=== PATIENT | female | born 1980 | race Asian ===

== ENCOUNTER 2019-04-06 09:54 | Outpatient (CLI) | payer OTHER | END 2019-04-06 19:42 | disposition home or self-care (01) | LOC: RAD 09:54 | DX: R05 Cough (principal) ==

== ENCOUNTER 2019-04-20 09:17 | Observation (INO) | payer OTHER ==
[~2019-04-20] VITALS: Ht 157.5 cm; Wt 115.8 kg
[2019-04-20 10:43] VITALS: BP 128/80; TEMP 97.6; Ht 157.5 cm; Wt 115.8 kg
[2019-04-20 11:15] LABS: PLATELET COUNT 414 K/uL (152-353)
[2019-04-20 11:24] LABS: POTASSIUM 3.4 mmol/L (3.6-5.2)
[2019-04-20] MEDS ORDERED: CARAFATE1 GM/10 ML PO (11:47)
[2019-04-20] MEDS ORDERED: [UNRECOGNIZED DRUG - CODE] PO (11:48)
[2019-04-20] MEDS ORDERED: DULOXETINE HYDR60 MG PO (11:49)
[2019-04-20] MEDS ORDERED: ESCITALOPRAM20 MG PO (11:50)
[2019-04-20] MEDS ORDERED: GRALISE600 MG PO (11:51)
[2019-04-20] MEDS ORDERED: FURO40TA93 PO (11:51)
[2019-04-20] MEDS ORDERED: ZOHYDRO ER10 M1 PO (11:52)
[2019-04-20] MEDS ORDERED: METOPROLOL25 M1 PO (11:53)
[2019-04-20] MEDS ORDERED: SIMV40TA57 PO (11:54)
[2019-04-20] MEDS ORDERED: PANTOPRAZOLE 40MG TA PO (11:54)
[2019-04-20 12:00] VITALS: BP 128/80; TEMP 97.6
[2019-04-20 16:00] VITALS: BP 124/64; TEMP 97.9
[2019-04-20 20:00] VITALS: BP 107/62; TEMP 98.2
[2019-04-21] VITALS: BP 108/64; TEMP 98.1
[2019-04-21 04:00] VITALS: BP 92/51; TEMP 98.4
[2019-04-21 05:10] LABS: PLATELET COUNT 346 K/uL (152-353)
[2019-04-21 05:27] LABS: POTASSIUM 3.7 mmol/L (3.6-5.2)
[2019-04-21 08:00] VITALS: BP 142/99; TEMP 98.3
--- NOTE | 2019-04-21 08:00 | NUR ---
PT RECEIVED LYING IN BED. NO DISTRESS NOTED.
--- NOTE | 2019-04-21 09:10 | NUR ---
PT COMPLAINING OF CHEST TIGHTNESS/THROUGH TO BACK. STATES HAS NOT HAD NEB TREATMENT SINCE ADMISSION. BP 157/96, HR 98 - CM SHOWS NSR - NO CHANGE NOTED, RESP 22, SPO2 97% ON ROOM AIR. LUNG SOUNDS SLIGHTLY DIMINISHED BUT OTHERWISE CTA. CHART REVIEWED AND ORDER NOTED FOR HYDROCODONE. PT STATES THAT SHE HAS NOT HAD HER CHRONIC PAIN MEDICATION SINCE ADMISSION AND "I NEED IT".
--- NOTE | 2019-04-21 09:27 | NUR ---
PT GIVEN HYDROCODONE 10MG PO ORDERED FOR PAIN (LEVEL 6).
--- NOTE | 2019-04-21 10:00 | NUR ---
PT STATES PAIN IS GETTING BETTER. LEVEL 3 NOW. NO DISTRESS NOTED.
[2019-04-21 12:00] VITALS: BP 140/90; TEMP 97.5
--- NOTE | 2019-04-21 12:00 | NUR ---
PT RESTING IN BED. NO DISTRESS NOTED.
--- NOTE | 2019-04-21 13:50 | NUR ---
DR WILLIAMSON HERE TO SEE PT.
--- NOTE | 2019-04-21 15:00 | NUR ---
SPOKE WITH DOYLE AT [facility] ([phone]) FOR TRANSPORT HOME. TRANSPORTATION WILL ARRIVE NO LATER THAN [id number]. CONFIRMATION NUMBER IS [id number].
--- NOTE | 2019-04-21 16:30 | NUR ---
PT IV DC'D. DC INSTRUCTIONS GIVEN TO PT. PT VERBALIZED UNDERSTANDING. PT LEFT THIS FACILITY AMB[facility] WITH [facility] IN NO DISTRESS USING WALKING CANE.
== END 2019-04-21 16:32 | disposition home or self-care (01) ==
LOC: MED/SURG 09:17
PROVIDERS: ADMIT Family Medicine
DX: E86.0 Dehydration (principal); R53.1 Weakness; A08.8 Other specified intestinal infections; J20.9 Acute bronchitis, unspecified; R25.1 Tremor, unspecified; L65.8 Other specified nonscarring hair loss; I10 Essential (primary) hypertension; E78.49 Other hyperlipidemia; G62.89 Other specified polyneuropathies; K21.9 Gastro-esophageal reflux disease without esophagitis; M79.7 Fibromyalgia
CPT/HCPCS: 80053; 80061; 80307; 81000; 82728; 83540; 83550; 83735; 84100; 84439; 84443; 85027; 94664; 94760; 96366; 96367; 96374; 96375; 99220; G0378; G0379; J2550; J3490

== ENCOUNTER 2019-05-13 23:40 | Outpatient (CLI) | payer OTHER ==
[~2019-05-13 23:40] MED LIST: CARAFATE1 GM/10 ML PO; DULOXETINE HYDR60 MG PO; ESCITALOPRAM20 MG PO; FURO40TA93 PO; GRALISE600 MG PO; METOPROLOL25 M1 PO; PANTOPRAZOLE 40MG TA PO; SIMV40TA57 PO; ZOHYDRO ER10 M1 PO; [UNRECOGNIZED DRUG - CODE] PO
== END 2019-05-13 23:44 | disposition short-term general hospital (02) ==
LOC: AMB 23:40
DX: R11.2 Nausea with vomiting, unspecified (principal)
CPT/HCPCS: A0425; A0429

== ENCOUNTER 2019-05-13 23:45 | Emergency (ER) | payer OTHER ==
[~2019-05-13] VITALS: Ht 157.5 cm; Wt 116.1 kg
[2019-05-14 00:36] LABS: PLATELET COUNT 447 K/uL (152-353)
[2019-05-14 01:17] LABS: SODIUM 142 mmol/L (136-145)
[2019-05-14 02:40] VITALS: BP 124/86; TEMP 97.9
== END 2019-05-14 02:51 | disposition home or self-care (01) ==
LOC: ED 23:51
PROVIDERS: Family Medicine
DX: R10.84 Generalized abdominal pain (principal); R11.2 Nausea with vomiting, unspecified; R19.7 Diarrhea, unspecified; K59.09 Other constipation
CPT/HCPCS: 36415; 80053; 80307; 81000; 82150; 82550; 82553; 83605; 83690; 84484; 85027; 96360; 96375; 99285; J2405

== ENCOUNTER 2019-05-14 17:03 | Outpatient (CLI) | payer OTHER | END 2019-05-14 17:06 | disposition short-term general hospital (02) | LOC: AMB 17:03 | DX: K59.00 Constipation, unspecified (principal); R11.10 Vomiting, unspecified | CPT/HCPCS: A0425; A0429 ==

== ENCOUNTER 2019-05-14 17:09 | Emergency (ER) | payer OTHER ==
[~2019-05-14] VITALS: Ht 157.5 cm; Wt 116.1 kg
[2019-05-14 18:42] LABS: PLATELET COUNT 401 K/uL (152-353)
[2019-05-14 18:51] LABS: POTASSIUM 3.4 mmol/L (3.6-5.2)
[2019-05-14 19:29] VITALS: BP 145/90; TEMP 98
== END 2019-05-14 19:32 | disposition home or self-care (01) ==
LOC: ED 17:09
PROVIDERS: Family Medicine
DX: K29.60 Other gastritis without bleeding (principal); K58.8 Other irritable bowel syndrome; J44.9 Chronic obstructive pulmonary disease, unspecified; M79.7 Fibromyalgia; K21.9 Gastro-esophageal reflux disease without esophagitis
CPT/HCPCS: 36415; 80053; 82271; 82272; 83986; 85027; 99283

== ENCOUNTER 2019-08-16 15:10 | Outpatient (CLI) | payer OTHER | END 2019-08-16 15:13 | disposition short-term general hospital (02) | LOC: AMB 15:10 | DX: R10.9 Unspecified abdominal pain (principal); R11.10 Vomiting, unspecified | CPT/HCPCS: A0425; A0429 ==

== ENCOUNTER 2019-08-16 15:14 | Emergency (ER) | payer OTHER ==
[~2019-08-16] VITALS: Ht 157.5 cm; Wt 106.6 kg
[2019-08-16 16:07] LABS: PLATELET COUNT 342 K/uL (152-353)
[2019-08-16 16:20] LABS: POTASSIUM 4.5 mmol/L (3.6-5.2)
[2019-08-16 19:18] VITALS: BP 129/81; TEMP 98.1
== END 2019-08-16 19:18 | disposition home or self-care (01) ==
LOC: ED 15:14
PROVIDERS: Emergency Medicine
DX: R10.32 Left lower quadrant pain (principal); R11.2 Nausea with vomiting, unspecified
CPT/HCPCS: 80053; 81000; 82150; 83690; 85027; 99283; Q9963

== ENCOUNTER 2019-08-28 15:27 | Outpatient (CLI) | payer OTHER | END 2019-08-28 15:30 | disposition short-term general hospital (02) | LOC: AMB 15:27 | DX: M25.561 Pain in right knee (principal); R22.41 Localized swelling, mass and lump, right lower limb; W18.39XA Other fall on same level, initial encounter; Y93.89 Activity, other specified; Y92.018 Other place in single-family (private) house as the place of occurrence of the external cause | CPT/HCPCS: A0425; A0429 ==

== ENCOUNTER 2019-08-28 15:37 | Emergency (ER) | payer OTHER ==
[~2019-08-28] VITALS: Ht 157.5 cm; Wt 108.9 kg
[2019-08-28 17:30] LABS: POTASSIUM 3.5 mmol/L (3.6-5.2)
[2019-08-28 18:40] LABS: PLATELET COUNT 229 K/uL (152-353)
[2019-08-28 19:09] VITALS: BP 106/63; TEMP 98.5
== END 2019-08-28 19:09 | disposition home or self-care (01) ==
LOC: ED 15:37
PROVIDERS: Emergency Medicine
DX: S80.01XA Contusion of right knee, initial encounter (principal); L03.115 Cellulitis of right lower limb; D64.89 Other specified anemias; W18.39XA Other fall on same level, initial encounter; Y92.89 Other specified places as the place of occurrence of the external cause
CPT/HCPCS: 80053; 83605; 85027; 96372; 99283; J1885

== ENCOUNTER 2019-09-14 15:19 | Outpatient (CLI) | payer OTHER ==
[2019-09-14 16:00] LABS: PLATELET COUNT 356 K/uL (152-353); POTASSIUM 4.1 mmol/L (3.6-5.2)
== END 2019-09-14 19:18 | disposition home or self-care (01) ==
LOC: LABW 15:19
PROVIDERS: Family Medicine
DX: K92.0 Hematemesis (principal); K21.9 Gastro-esophageal reflux disease without esophagitis; J44.9 Chronic obstructive pulmonary disease, unspecified; G89.4 Chronic pain syndrome; I10 Essential (primary) hypertension; G62.9 Polyneuropathy, unspecified; E55.9 Vitamin D deficiency, unspecified
CPT/HCPCS: 36415; 80053; 81000; 82306; 82607; 83735; 84439; 84443; 85027

== ENCOUNTER 2019-09-20 15:07 | Emergency (ER) | payer OTHER | END 2019-09-20 16:17 | disposition home or self-care (01) | LOC: ED 15:07 | DX: K92.0 Hematemesis (principal) | CPT/HCPCS: 99281 ==